=== PATIENT | female | born 1995 | race Hispanic/Latino ===

== ENCOUNTER 2025-01-18 18:50 | Emergency (ER) | payer OTHER, SELFPAY ==
[2025-01-18 18:52] VITALS: BP 128/92
[2025-01-18 19:40] VITALS: BMI 43.4
[2025-01-18 19:43] VITALS: BP 109/64
[2025-01-18] MEDS: DELTASONE 50 MG PO (20:03)
[2025-01-18] MEDS: DUONEB 3 ML INH (20:05)
[2025-01-18 20:21] LABS: COVID-19 Antigen Negative (Negative)
--- NOTE | 2025-01-18 21:02 | ED.GENMED ---
History of Present Illness
General
Chief Complaint: Breathing Problem
Source: patient
Exam Limitations: none
Time Seen by Provider: 01/18/25 19:32
History of Present Illness
History of Present Illness:
29-year-old female presents complaining of cough and chest tightness over the past 2 days no associated fever. She has a history of asthma has been using her rescue inhaler without significant relief. She thinks she might have bronchitis. No
other complaints at this time
Phy Exam
Physical Exam
Physical Exam:
General: Well-appearing female no acute respiratory distress
HEENT: Normocephalic atraumatic
Heart: Regular rate and rhythm
Lungs: Clear no obvious wheeze or rales
Extremities: No cyanosis or edema
Course
Orders/Labs/Results
Orders:
Orders
01/18/25 19:52
Ipratropium/Albuterol Sulfate [Duoneb] 3 ml INH R NOW ONE
Prednisone [Deltasone] 50 mg PO NOW STA
01/18/25 20:00
COVID-19 Antigen Urgent
Source: Nasal Swab
Influenza A+B Rapid Molecular Urgent
MARTIN Source: Nasal Swab
Specimen Description:
Vital Signs
Initial and Last Documented VS:
Initial Vital Signs
Temp Pulse Resp BP Pulse Ox
98.2 F 83 20 128/92 100
01/18/25 18:52 01/18/25 18:52 01/18/25 18:52 01/18/25 18:52 01/18/25 18:52
Last Documented Vital Signs
Temp Pulse Resp BP Pulse Ox
98.2 F 66 18 109/64 99
01/18/25 18:52 01/18/25 19:43 01/18/25 19:43 01/18/25 19:43 01/18/25 19:43
MDM/Problems Addressed
Differential Diagnosis Includes:
Cough chest tightness consider asthma laceration versus bronchitis versus pneumonia versus COVID or flu
No fever lungs are clear do not suspect pneumonia. Patient given DuoNeb and steroid will treat for acute bronchitis. COVID and flu test were negative. She is not requiring supplemental oxygen no indication for admission. Will discharge home with
continued use of inhaler and steroid.
*Critical Care Note
Total Time (30-74mins, 75-104mins- exclusive of procedures): Not Applicable
ED Attending Note
-
Portions of this chart may have been created with voice recognition software.� Occasional wrong word or��sound alike� substitutions may have occurred due to the inherent limitations of voice recognition software.
Discharge Plan
Departure
Patient Disposition: Home (Routine Discharge)
Date of Disposition: 01/18/25
Time of Disposition: 21:03
Patient with high blood pressure during this ER visit?: No
Discharge Problem:
Acute bronchitis
Instructions: Acute Bronchitis, Adult (DC)
Prescriptions:
New
prednisone 20 mg tablet
40 mg PO DAILY 5 Days Qty: 10 0RF
No Action
trazodone 50 mg Tablet
50 mg PO HS PRN (Reason: insomnia)
levetiracetam 500 mg Tablet
500 mg PO BID
naltrexone 50 mg Tablet
50 mg PO HS
hydroxyzine pamoate 50 mg Capsule
50 mg PO TID PRN (Reason: anxiety)
ibuprofen 200 mg Tablet
400 mg PO Q8H PRN (Reason: pain)
docusate sodium [Colace] 100 mg Capsule
100 mg PO DAILY
buspirone 7.5 mg Tablet
7.5 mg PO BID
albuterol sulfate 90 mcg/actuation Hfa Aerosol Inhaler
2 puff INHALATION Q4H PRN (Reason: asthma)
escitalopram oxalate [Lexapro] 20 mg Tablet
20 mg PO DAILY
Referrals:
UNKNOWN - PT DOES,NOT KNOW [Family Provider] -
Stand Alone Forms: Return to Work
Activity Restrictions/Additional Instructions:
Continue with inhaler. Use steroid as directed. Return if worse otherwise follow-up with your doctor
Interventions
Interventions:
*Risk Screen - Suicide Last Done: 01/18/25 18:52
*General Assessment Last Done: 01/18/25 18:52
*Neglect/Abuse Screening Last Done: 01/18/25 19:42
*ED- Fall Risk Assessment Last Done: 01/18/25 19:41
*ED COVID-19 Vaccine History Last Done: 01/18/25 19:41
Discharge Date and Time
Print Language: LITHUANIAN
[2025-01-18 21:10] VITALS: BP 113/81
== END 2025-01-18 21:14 | disposition home or self-care (01) ==
LOC: EMR 18:50
PROVIDERS: Physician Assistant; EMERGENCY PHYSICIAN Emergency Medicine
DX: J20.9 Acute bronchitis, unspecified (principal); J45.909 Unspecified asthma, uncomplicated
CPT/HCPCS: 99283; 94640; 87502; 87811

== ENCOUNTER 2025-02-21 11:29 | Emergency (ER) | payer OTHER, SELFPAY ==
[2025-02-21 11:39] VITALS: BP 130/81
[2025-02-21 12:05] LABS: Urine Albumin Negative (Neg - Trace); Urine Bilirubin Negative (Negative); Urine Character Clear (Clear); Urine Color Yellow; Urine Glucose Negative (Negative); Urine Ketone Negative (Negative); Urine Leukocyte Negative (Negative); Urine Nitrite Negative (Negative); Urine Occult Blood Negative (Negative); Urine Urobilinogen Negative (Neg - 1+)
[2025-02-21 12:10] LABS: % Basophils 0.7 % (0-2); % Eosinophils 1.5 % (0-6); % Immature Granulocytes 0.3 % (0-0.5); % Lymphocytes 27.3 % (20.5-51.1); % Monocytes 6.7 % (1.7-9.3); % Neutrophils 63.5 % (42.2-75.2); Absolute Basophils 0.1 10^3/uL (0-0.2); Absolute Eosinophils 0.1 10^3/uL (0-0.7); Absolute Lymphocytes 2.6 10^3/uL (1.2-3.4); Absolute Monocytes 0.6 10^3/uL (0.1-0.6); Hemoglobin 12.9 g/dL (12.0-16.0); Mean Corp Hgb Conc. 33.9 g/dL (33.0-37.0); Mean Corpuscular Hgb 29.7 pg (27.0-31.0); Mean Corpuscular Volume 87.6 fL (81.0-99.0); Mean Platelet Volume 11.1 fL (7.4-10.4); Nucleated Red Blood Cells % 0 %; Platelet Count 305 10^3/uL (130-400); Red Blood Cell Count 4.34 10^6/uL (4.20-5.40); White Blood Cell Count 9.5 10^3/uL (4.8-10.8)
[2025-02-21 12:17] LABS: HCG, Serum Qualitative Screen Negative
[2025-02-21 12:24] LABS: ALT (SGPT) 15 U/L (0-35); AST (SGOT) 20 U/L (14-36); Albumin 4.4 g/dl (3.5-5.0); Alkaline Phosphatase 139 U/L (38-126); Blood Urea Nitrogen 10 mg/dl (7-17); Calcium 9.7 mg/dl (8.4-10.2); Carbon Dioxide 25 mmol/L (22-30); Chloride 105 mmol/L (98-107); Glucose 100 mg/dl (70-99); Potassium 4.3 mmol/L (3.5-5.1); Sodium 140 mmol/L (135-145); Total Bilirubin 0.4 mg/dl (0.2-1.3); Total Protein 7.6 g/dl (6.3-8.2); eGFR > 60.00
[2025-02-21 12:34] LABS: Lipase 56 U/L (23-300)
--- NOTE | 2025-02-21 13:03 | ED.GENMED ---
History of Present Illness
General
Chief Complaint: Abdominal Pain
Source: patient
Exam Limitations: none
Time Seen by Provider: 02/21/25 12:44
Nursing documentation reviewed up to this point in time: agreed with
History of Present Illness
History of Present Illness:
29-year-old female history of seizures previous PE GERD presenting to the emergency department today with concerns of brief episode of right upper quadrant Russell pain now better. Was on the past that she had some gallbladder issues that she may
need surgery in the future. Had an episode of vomiting today feels better otherwise. Denies any chest pain shortness of breath.
Review of Systems
Review of Systems
Allergies reviewed?: Yes
All Other Systems: ROS reviewed and negative except as documented in HPI and ROS
Phy Exam
Physical Exam
Physical Exam:
GENERAL: Alert , in no apparent distress
EYE: pupils equal and reactive
NECK: Supple, no significant adenopathy.
ENT: o/p clr, mmm.
CARDIAC: Regular rate and rhythm .
LUNGS: Clear breath sounds bilaterally, no acute respiratory distress, no wheezes/rales/rhonchi
ABDOMEN: Soft, without focal tenderness, no r/g, no cvat
NEUROLOGICAL: Alert and oriented, no focal neuro deficits
SKIN: Warm and dry, skin intact.
MUSCULOSKELETAL: No edema, well perfused.
PSYCH: Normal and appropriate interaction.
Course
Orders/Labs/Results
Orders:
Orders
02/21/25 11:43
Test Result ONCE
02/21/25 11:47
Complete Blood Count/With Diff Urgent
Comprehensive Metabolic Panel Urgent
HCG, Serum Qualitative Screen Urgent
Comment: Notify provider if positive test present
Lipase Urgent
Urinalysis Reflex To Culture Urgent
Date Specimen was Collected: 02/21/25
Time Specimen was Collected: 11:43
Abnormal Lab Results
02/21/25
11:47
MPV 11.1 H fL
(7.4-10.4)
Glucose 100 H mg/dl
(70-99)
Alkaline Phosphatase 139 H U/L
(38-126)
02/21/25 11:47
02/21/25 11:47
Vital Signs
Initial and Last Documented VS:
Initial Vital Signs
Temp Pulse Resp BP Pulse Ox
98.3 F 90 18 130/81 98
02/21/25 11:39 02/21/25 11:39 02/21/25 11:39 02/21/25 11:39 02/21/25 11:39
Last Documented Vital Signs
Temp Pulse Resp BP Pulse Ox
98.3 F 90 18 130/81 98
02/21/25 11:39 02/21/25 11:39 02/21/25 11:39 02/21/25 11:39 02/21/25 11:39
MDM/Problems Addressed
MDM/Problems Addressed:
29-year-old female present today with concerns of upper quadrant abdominal pain for a brief moment today episode of vomiting. History of gallbladder issues now feels better. No significant pain to palpation throughout the abdomen. He was offered
a to the patient to get ultrasound imaging to assess the gallbladder and see if there is any emergent process. Otherwise her labs are normal here. She claims that she would not like to get a imaging or testing she feels well and will return if any
symptoms worsen. Risks of this were discussed with the patient who demonstrated understanding. Otherwise patient did not stable condition.
*Critical Care Note
Total Time (30-74mins, 75-104mins- exclusive of procedures): Not Applicable
ED Attending Note
-
Portions of this chart may have been created with voice recognition software.� Occasional wrong word or��sound alike� substitutions may have occurred due to the inherent limitations of voice recognition software.
Discharge Plan
Departure
Patient Disposition: Home (Routine Discharge)
Date of Disposition: 02/21/25
Time of Disposition: 13:05
Patient with high blood pressure during this ER visit?: No
Condition: Good
Covid-19: Not Applicable
Discharge Problem:
Abdominal pain
Instructions: Abdominal Pain
Prescriptions:
No Action
trazodone 50 mg Tablet
50 mg PO HS PRN (Reason: insomnia)
levetiracetam 500 mg Tablet
500 mg PO BID
naltrexone 50 mg Tablet
50 mg PO HS
hydroxyzine pamoate 50 mg Capsule
50 mg PO TID PRN (Reason: anxiety)
ibuprofen 200 mg Tablet
400 mg PO Q8H PRN (Reason: pain)
docusate sodium [Colace] 100 mg Capsule
100 mg PO DAILY
buspirone 7.5 mg Tablet
7.5 mg PO BID
albuterol sulfate 90 mcg/actuation Hfa Aerosol Inhaler
2 puff INHALATION Q4H PRN (Reason: asthma)
escitalopram oxalate [Lexapro] 20 mg Tablet
20 mg PO DAILY
prednisone 20 mg tablet
40 mg PO DAILY 5 Days Qty: 10 0RF
Referrals:
Max Moreland MD [Active] - Follow up in 5-7 days
UNKNOWN - PT DOES,NOT KNOW [Family Provider] -
Stand Alone Forms: Return to Work
Activity Restrictions/Additional Instructions:
You came to the emergency department today with concerns of abdominal pain. This could be related to your gallbladder. Your labs are unremarkable. Please return if symptoms are progressing.
Interventions
Interventions:
*Risk Screen - Suicide Last Done: 02/21/25 11:39
*General Assessment Last Done: 02/21/25 11:39
*Neglect/Abuse Screening Last Done: 02/21/25 11:39
*ED- Fall Risk Assessment Last Done: 02/21/25 12:04
*ED COVID-19 Vaccine History Last Done: 02/21/25 12:04
Discharge Date and Time
Print Language: QATARI
== END 2025-02-21 13:12 | disposition home or self-care (01) ==
LOC: EMR 11:29
PROVIDERS: Emergency Medicine; EMERGENCY PHYSICIAN Emergency Medicine
DX: R10.11 Right upper quadrant pain (principal); K21.9 Gastro-esophageal reflux disease without esophagitis; R56.9 Unspecified convulsions; Z86.711 Personal history of pulmonary embolism
CPT/HCPCS: 99283; 80053; 81003; 83690; 84703; 85025